=== PATIENT | female | born 1990 | race Caucasian/White ===

== ENCOUNTER 2022-02-06 12:36 | Inpatient (IN) | payer BC ==
[2022-02-06] VITALS (26 sets, daily range): BP systolic 14–172; BP diastolic 56–77; PULSE 62–98; TEMP 98.1–98.2
[~2022-02-06] VITALS: Ht 162.6 cm; Wt 65.9 kg
[2022-02-06] MEDS ORDERED: CLARITIN 1010 MG/TAB PO (13:58)
[2022-02-06] MEDS ORDERED: ACCOLATE 220 MG/1 TA PO (13:58)
[2022-02-06] MEDS ORDERED: ASPIRIN 81M81 MG/TA2 PO (13:59)
[2022-02-06] MEDS ORDERED: PRENATAL TABLET PO (13:59)
[2022-02-06 14:06] LABS: BASO # 0.1 K/mm3 (0.0-0.2); BASO % 0.4 % (0.0-2.0); EOS % 0.3 % (0.0-4.0); GRAN # 10.8 K/mm3 (1.4-6.5); GRAN % 80.3 % (42.2-75.2); HEMATOCRIT 43.4 % (37.0-47.0); HEMOGLOBIN 14.9 g/dl (12.5-16.0); LYMPH # 1.6 K/mm3 (1.2-3.4); LYMPH % 12.2 % (20.0-51.0); MEAN CELL VOLUME 85 fl (80.0-100.0); MEAN CORPUSCULAR HEMOGLOBIN 29 pg (27-31); MEAN CORPUSCULAR HGB CONC 34 g/dl (33.0-37.0); MEAN PLATELET VOLUME 10.7 fl (7.4-10.4); MONO # 0.9 K/mm3 (0.1-0.6); MONO % 6.3 % (1.7-9.3); PLATELET COUNT 248 K/mm3 (130-400); RED BLOOD COUNT 5.09 M/mm3 (4.10-5.30); REDCELL DISTRIBUTION WIDTH-CV 13.3 % (11.5-14.5)
--- NOTE | 2022-02-06 15:00 | NUR ---
1240 PATIENT HERE FROM HOME FOR CONTRACTIONS. Nate PATE RN PLACED EFM ON FHT 125 BABY VERY ACTIVE. CONTRACTIONS 2-5 MIN AND PALPATE FIRM. SVE BY Nate PATE /-1 INTACT.
--- NOTE | 2022-02-06 15:02 | NUR ---
1330 DR DOWD AT BEDSIDE. SVE AROM WITH AMNIOHOOK. CLEAR FLUID NOTED. HEPLOCK PLACED IN LEFT WRIST BY Nate PATE RN
--- NOTE | 2022-02-06 15:04 | NUR ---
1330 LR 1000 CC HUNG FOR A BOLUS. TASSEL MAKING MACHINE OPERATOR CALLED FOR EPIDERAL PLACEMENT. PATIETN SITS ON EDGE OF BED. TOLERATES PLACEMENT WELL SEEE TASSEL MAKING MACHINE OPERATOR NOTES FOR QUESTIONS.
--- NOTE | 2022-02-06 16:29 | NUR ---
1615 DR DOWD AT BEDSIDE. SVE ORDERS TO START PITOCIN FOR STRONGER CONTRACTIONS. PITOCIN STARTED AT 2 MU PER ORDER. PATIENT REPOSITIONED TO [facility].FHT 108. BABY VERY ACTIVE. PATIENT RESTS IN BED
--- NOTE | 2022-02-06 17:40 | NUR ---
1730 SVE /+2. PATIENT REPOSITIONED TO BASIL POSITION. STATES SHE IS STARTING TO FEEL SOME PRESSURE
--- NOTE | 2022-02-06 18:10 | NUR ---
1809 PUSHING WITH CONTRACTIONS. FHT'S BETWEEN CONTRACTIONS 80'S-90'S. VACUUM APPLIED PER DR DOWD USED DURING TWO PUSHES WITH TWO POPOFFS. 1815 DEL VIABLE MALE OVER 2nd DEGREE LAC. APGARS . IV CONTS TO INFUSE. 1829 METHERGINE 0.2 MG IM GIVEN. CORD GASES OBTAINED AND PLACENTA TO PATHOLOGY
--- NOTE | 2022-02-06 18:13 | NUR ---
1800 DR DOWD AT BEDSIDE. SVE COMPLETE. +2 START PUSHING WITH PATIENT. REPORT GIVEN TO Delvis COHEN RN TO ASSUME CARE AT THIS TIME
[2022-02-06] MEDS ORDERED: MOTRIN 800800 MG/TAB PO (19:52)
--- NOTE | 2022-02-06 20:30 | NUR ---
2030 IV TO INT. EPID CATH REMOVED. UP TO BR WITH ASSIST AND VOIDED 100CC. PERICARE DONE. ICE TO PERINEUM FOR C/O DISCOMFORT. TO W/C AND TO 207. ESTELLE WELL.
[2022-02-07 04:00] VITALS: BP 98/57; PULSE 88; TEMP 97.9
[2022-02-07 08:45] VITALS: BP 112/68; PULSE 83; TEMP 97.8
--- NOTE | 2022-02-07 10:49 | NUR ---
Initial visit attempt; Testing notice, Screen Machine Operator left card letting family know of the availability of Spiritual Care at our hospital and also congratulating the family for the of their son.
[2022-02-07 16:55] VITALS: BP 110/80; PULSE 86; TEMP 97.5
--- NOTE | 2022-02-07 18:30 | NUR ---
Report recieved. Sitting on bench with visitors at bedside. POC reviewed and whiteboard updated.
[2022-02-07 20:45] VITALS: BP 118/66; PULSE 70; TEMP 97.9
[2022-02-08 09:00] VITALS: BP 109/64; PULSE 79; TEMP 97.6
[2022-02-08] MEDS ORDERED: TYLENOL 500MG500 MG PO (09:18)
== END 2022-02-08 12:25 | disposition home or self-care (01) | DRG 807 ==
LOC: LDRO 12:36 → LDR 13:07 → OB 20:30
PROVIDERS: ADMIT Obstetrics & Gynecology
PROC: 10D07Z6 Extraction of Products of Conception, Vacuum, Via Natural or Artificial Opening (ICD-10-PCS; principal; 2022-02-06)
PROC: 0KQM0ZZ Repair Perineum Muscle, Open Approach (ICD-10-PCS; 2022-02-06)
PROC: 10907ZC Drainage of Amniotic Fluid, Therapeutic from Products of Conception, Via Natural or Artificial Opening (ICD-10-PCS; 2022-02-06)
DX: O76 Abnormality in fetal heart rate and rhythm complicating labor and delivery (principal); Z37.0 Single live birth; O36.5930 Maternal care for other known or suspected poor fetal growth, third trimester, not applicable or unspecified; O99.344 Other mental disorders complicating childbirth; F41.9 Anxiety disorder, unspecified; O69.81X0 Labor and delivery complicated by cord around neck, without compression, not applicable or unspecified; O75.89 Other specified complications of labor and delivery; Z3A.39 39 weeks gestation of pregnancy; Z23 Encounter for immunization; Z86.16 Personal history of COVID-19
CPT/HCPCS: J2210; J2590; J7120